=== PATIENT | female | born 1985 | race Two or more races ===

== ENCOUNTER 2022-07-24 10:36 | Outpatient (CLI) | payer OTHER | END 2022-07-24 10:45 | disposition home or self-care (01) | LOC: MAMO-SONO 10:36 | PROVIDERS: ATTEND General Practice | DX: N64.4 Mastodynia (principal) ==

== ENCOUNTER → 2023-01-18 | Outpatient (CLI) | payer OTHER | END | disposition home or self-care (01) | LOC: PPH VACUNA | PROVIDERS: ATTEND Emergency Medicine Pediatric Emergency Medicine | DX: Z23 Encounter for immunization (principal) ==

== ENCOUNTER 2023-07-12 10:05 | Emergency (ER) | payer OTHER ==
[~2023-07-12] VITALS: Ht 190.5 cm; Wt 62.6 kg
[2023-07-12] MEDS ORDERED: TETANUS & DIPHTHERIA TOX,ADULT 0.5 ML VIAL IM ONE (10:45)
== END 2023-07-12 11:08 | disposition home or self-care (01) ==
LOC: ER 10:05
DX: S61.226A Laceration with foreign body of right little finger without damage to nail, initial encounter (principal); W45.8XXA Other foreign body or object entering through skin, initial encounter; Y93.89 Activity, other specified; Y92.018 Other place in single-family (private) house as the place of occurrence of the external cause

== ENCOUNTER 2024-03-06 10:15 | Outpatient (CLI) | payer OTHER ==
[~2024-03-06 10:15] MED LIST: DOLOGESIC-DF 51 EACH PO; PHENAGIL TABLE1 EACH PO; ZYNCOF 20-400120 ML PO
== END 2024-03-06 10:30 | disposition home or self-care (01) ==
LOC: PPH VACUNA 10:15
PROVIDERS: ATTEND Emergency Medicine Pediatric Emergency Medicine
DX: Z23 Encounter for immunization (principal)

== ENCOUNTER 2024-10-15 19:08 | Emergency (ER) | payer OTHER ==
[~2024-10-15] VITALS: Ht 172.7 cm; Wt 102.1 kg
[2024-10-15] MEDS ORDERED: DEXAMETHASONE SODIUM PHOSPHATE 4 MG/ML VIAL IM STA (19:41)
[2024-10-15] MEDS ORDERED: KETOROLAC TROMETHAMINE 60 MG VIAL IM STA (19:41)
[2024-10-15] MEDS ORDERED: ORPHENADRINE CITRATE 30 MG/ML AMPUL IM STA (19:41)
[2024-10-15] MEDS ORDERED: ORPHENADRINE CITRATE 30 MG/ML AMPUL ONE (19:46)
[2024-10-15] MEDS ORDERED: KETOROLAC TROMETHAMINE 60 MG VIAL IM ONE (19:46)
[2024-10-15] MEDS ORDERED: DEXAMETHASONE SODIUM PHOSPHATE 4 MG/ML VIAL ONE (19:47)
== END 2024-10-15 20:02 | disposition home or self-care (01) ==
LOC: ER 19:10
DX: M62.830 Muscle spasm of back (principal)